=== PATIENT | male | born 1960 | race Caucasian/White ===

== ENCOUNTER 2021-07-21 10:29 | Outpatient (RCR) | payer MEDICARE | END 2021-07-22 | disposition home or self-care (01) | LOC: CR 10:29 | DX: Z29.8 Encounter for other specified prophylactic measures (principal); Z95.1 Presence of aortocoronary bypass graft | CPT/HCPCS: 93798 ==

== ENCOUNTER 2021-07-23 10:34 | Outpatient (RCR) | payer MEDICARE | END 2021-08-21 | disposition home or self-care (01) | LOC: CR 10:34 | DX: Z29.8 Encounter for other specified prophylactic measures (principal); Z95.1 Presence of aortocoronary bypass graft | CPT/HCPCS: 93798 ==

== ENCOUNTER 2021-08-23 08:17 | Outpatient (RCR) | payer MEDICARE | END 2021-09-21 | disposition home or self-care (01) | LOC: CR 08:17 | DX: Z29.8 Encounter for other specified prophylactic measures (principal); Z95.1 Presence of aortocoronary bypass graft ==